=== PATIENT | male | born 1965 | race Caucasian/White ===

== ENCOUNTER 2016-10-23 12:54 | Inpatient (IN) | payer OTHER ==
[~2016-10-23] VITALS: Ht 165.1 cm; Wt 82.5 kg
[2016-10-23 15:03] LABS: HEMATOCRIT 44.7 % (38.0-50.0); MCH 31.5 PG (29.0-34.0); MCV 92.5 FL (86-99); MEAN PLAT.VOLUME 10.6 uM^3 (9.0-12.4); PLATELET COUNT 152 K/uL (156-360); RBC DIS.WIDTH-CV 13.2 % (11.8-14.6); RBC DIS.WIDTH-SD 44.6 % (39-53); RED BLOOD COUNT 4.83 M/uL (4.00-5.50); WHITE BLOOD COUNT 12.6 K/uL (4.1-10.2)
[2016-10-23 15:12] LABS: CHLORIDE 101 mEq/L (99-109); POTASSIUM 3.3 mEq/L (3.7-5.4); SODIUM 137 mEq/L (136-147)
[2016-10-23 15:14] LABS: GLUCOSE 111 mg/dL (70-99)
[2016-10-23 15:15] LABS: ANION GAP 13 MEQ/L (2-14)
[2016-10-23 15:17] LABS: SERUM ETHYL ALCOHOL 251 mg/dL
[2016-10-23 15:20] LABS: GFR ESTIMATE (CALCULATED) > 59 mL/min/; UREA NITROGEN (BUN) 7 mg/dL (9-23)
[2016-10-23 15:21] LABS: SALICYLATE < 5.0 MG/DL (15-30)
[2016-10-23 21:38] LABS: AMPHETAMINE NEGATIVE (500 ng/mL); BARBITURATES NEGATIVE (200 ng/mL); BENZODIAZEPINES NEGATIVE (150 ng/mL); COCAINE NEGATIVE (150 ng/mL); INTERNAL CONTROLS VALID? YES; METHADONE NEGATIVE (200 ng/mL); METHAMPHETAMINE NEGATIVE (500 ng/mL); OPIATES (MORPHINE) NEGATIVE (100 ng/mL); OXYCODONE NEGATIVE (100 ng/mL); PHENCYCLIDINE NEGATIVE (25 ng/mL); PROPOXYPHENE NEGATIVE (300 ng/mL); THC CANNABINOIDS NEGATIVE (50 ng/mL); TRICYCLIC ANTIDEPRESSANTS NEGATIVE (300 ng/mL)
[2016-10-24] MEDS ORDERED: ADVIL200 MG PO (02:34)
[2016-10-24 07:00] VITALS: BP 159/73
[2016-10-24 15:35] VITALS: BP 129/71
[2016-10-25 07:19] VITALS: BP 153/78
[2016-10-25 13:02] LABS: URIC ACID 5.1 mg/dL (3.1-9.2)
[2016-10-25 15:33] VITALS: BP 146/78
[2016-10-26 07:28] VITALS: BP 134/77
[2016-10-26] MEDS ORDERED: ESCITALOPRAM OX10 MG PO (12:22)
== END 2016-10-26 13:09 | disposition home or self-care (01) | DRG 881 ==
LOC: EDBD 12:54 → EME 12:54 → EDOF 22:26 → 1WEST 22:26
PROVIDERS: Emergency Medicine; Psychiatry & Neurology Psychiatry
DX: F32.9 Major depressive disorder, single episode, unspecified (principal); F10.20 Alcohol dependence, uncomplicated; M10.9 Gout, unspecified; R45.851 Suicidal ideations; F12.90 Cannabis use, unspecified, uncomplicated; F17.200 Nicotine dependence, unspecified, uncomplicated; Y90.8 Blood alcohol level of 240 mg/100 ml or more
CPT/HCPCS: 71020; 73560; 80048; 82607; 82746; 84443; 84550; 85027; 90837; 97150 GO; 97165 GO; 99281; 99285; G0480